=== PATIENT | female | born 1945 | race Caucasian/White ===

== ENCOUNTER 2019-05-01 10:08 | Day surgery (SDC) | payer MEDICARE, BC ==
[~2019-05-01] VITALS: Ht 170.2 cm; Wt 119.5 kg
[~2019-05-01 10:08] MED LIST: ACET25TA12 PO; ADV100INH INH; ASPI81TA85 PO; COLC1TAB13 PO; COMB0.2S OP; COMB0.2S OS; FELO2.5T PO; LOSA25TA14 PO; NS 1,000 ML IV ONE; POTA10808 PO; PRAV40TA2 PO; PRED1TABL PO; TRAV04OPD OP; VENTAER INH
[2019-05-01] MEDS ORDERED: LIDOCAINE 2% INJ 100 MG/5 ML SDV (FOR ANES.) As Ordered ONE (11:09)
[2019-05-01] MEDS ORDERED: PROPOFOL 200 MG/20 ML VIAL As Ordered ONE (11:12)
--- NOTE | 2019-05-01 12:50 | ROOR ---
" Patient Name: Vidya Thomas Procedure Date: 05/01/2019 12:14 PM Date of : 1945 Age: 74 Room: [facility] Gender: Female Note Status: Finalized Procedure: Total Colonoscopy to Cecum + Cold/Hot Snare Polypectomy + Hemoclips Indications: High risk colon cancer surveillance: Personal history of colonic polyps Providers: Harpal Hernandez MD Referring MD: Flores Ferrari MD Requesting Provider: Medicines: Monitored Anesthesia Care Complications: No immediate complications. Procedure: Pre-Anesthesia Assessment: - The heart rate, respiratory rate, oxygen saturations, blood pressure, adequacy of pulmonary ventilation, and response to care were monitored throughout the procedure. The Colonoscope was introduced through the anus and advanced to the cecum, identified by appendiceal orifice and ileocecal valve. The colonoscopy was performed without difficulty. The patient tolerated the procedure well. The quality of the bowel preparation was excellent. Findings: The perianal and digital rectal examinations were normal. Non-bleeding internal hemorrhoids were found during retroflexion. The hemorrhoids were mild, small and Grade I (internal hemorrhoids that do not prolapse). Multiple small and large-mouthed diverticula were found in the recto-sigmoid colon, sigmoid colon and descending colon. A medium polyp was found at 55 cm proximal to the anus. The polyp was semi-pedunculated. The polyp was removed with a hot snare. Resection was complete, and retrieval was complete. To prevent bleeding after the polypectomy, two hemostatic clips were successfully placed (MR conditional). There was no bleeding at the end of the procedure. Multiple sessile polyps were found in the ascending colon. The polyps were small in size. These polyps were removed with a cold snare. Resection and retrieval were complete. To prevent bleeding after the polypectomy, three hemostatic clips were successfully placed (MR conditional). There was no bleeding at the end of the procedure. The exam was otherwise without abnormality on direct and retroflexion views. Impression: - Non-bleeding internal hemorrhoids. - Diverticulosis in the recto-sigmoid colon, in the sigmoid colon and in the descending colon. - One medium polyp at 55 cm proximal to the anus, removed with a hot snare. Resected and retrieved. Clips (MR conditional) were placed. - Multiple small polyps in the ascending colon, removed with a cold snare. Resected and retrieved. Clips (MR conditional) were placed. - The examination was otherwise normal on direct and retroflexion views. - The exam was otherwise normal to the cecum. Recommendation: - Patient has a contact number available for emergencies. The signs and symptoms of potential delayed complications were discussed with the patient. Return to normal activities tomorrow. Written discharge instructions were provided to the patient. - High fiber diet. - Discharge patient to home. - Continue present medications. - Await pathology results. - Check Portal Online for Path Results.([email or web address]) - Telephone GI clinic for pathology results in 1 week. - Repeat colonoscopy in 3 years for surveillance based on pathology results. - Return to referring physician. - The findings and recommendations were discussed with the patient's family. Harpal Hernandez MD Harpal Hernandez MD 05/01/2019 12:49:17 PM Electronically signed by Harpal Hernandez MD Number of Addenda: 0 Note Initiated On: 05/01/2019 12:14 PM Estimated Blood Loss: Estimated blood loss: none."
[2019-05-01 13:14] VITALS: BP 143/70
== END 2019-05-01 13:17 | disposition home or self-care (01) ==
LOC: M OPP 10:08
PROVIDERS: ATTEND Internal Medicine Gastroenterology
DX: D12.2 Benign neoplasm of ascending colon (principal); K62.1 Rectal polyp; K64.0 First degree hemorrhoids; K57.30 Diverticulosis of large intestine without perforation or abscess without bleeding

== ENCOUNTER → 2020-10-07 | Outpatient (CLI) | payer MEDICARE, BC ==
[~2020-10-07] MED LIST changes: +ASPI81CH16 PO; -ASPI81TA85 PO; +ASPI81TA86 PO; +COLC0.6T47 PO; -COLC1TAB13 PO; -FELO2.5T PO; +FURO80TA2 PO; +GABA-1171 PO; +LOSA100T5 PO; -NS 1,000 ML IV ONE; +[UNRECOGNIZED DRUG - CODE] PO
== END ==
LOC: M LABSMTC 09:30
PROVIDERS: ATTEND Anesthesiology
DX: Z01.812 Encounter for preprocedural laboratory examination (principal); Z20.828 Contact with and (suspected) exposure to other viral communicable diseases

== ENCOUNTER 2020-10-12 11:57 | Day surgery (SDC) | payer MEDICARE, BC ==
[~2020-10-12] VITALS: Ht 170.2 cm; Wt 114.3 kg
[~2020-10-12 11:57] MED LIST changes: +NS 1,000 ML IV ONE
[2020-10-12] MEDS ORDERED: propofoL 200 MG/20 ML VIAL As Ordered ONE (13:36)
[2020-10-12] MEDS ORDERED: LIDOCAINE 2% 100MG/5ML SDV (FOR ANES.) As Ordered ONE (13:36)
--- NOTE | 2020-10-12 14:33 | ROOR ---
Patient Name: Vidya Thomas Procedure Date: 10/12/2020 2:14 PM Date of : 1945 Age: 75 Room: [facility] Gender: Female Note Status: Finalized Procedure: Upper Endoscopy + Biopsies Indications: Unexplained iron deficiency anemia Providers: Harpal Hernandez MD Referring MD: Grecia Brown NP Requesting Provider: Medicines: Monitored Anesthesia Care Complications: No immediate complications. Procedure: Pre-Anesthesia Assessment: - The heart rate, respiratory rate, oxygen saturations, blood pressure, adequacy of pulmonary ventilation, and response to care were monitored throughout the procedure. The Endoscope was introduced through the mouth, and advanced to the second part of duodenum. The upper GI endoscopy was accomplished without difficulty. The patient tolerated the procedure well. Findings: The Z-line was irregular and was found 35 cm from the incisors. Multiple biopsies were obtained with cold forceps for evaluation to rule out Aviles's Esophagus randomly at the gastroesophageal junction. A medium-sized hiatal hernia was present. Localized moderate inflammation characterized by congestion (edema), erosions, erythema, granularity and linear erosions was found in the gastric antrum. Biopsies were taken with a cold forceps for Helicobacter pylori testing. The exam of the duodenum was otherwise normal. Impression: - Z-line irregular, 35 cm from the incisors. - Medium-sized hiatal hernia. - Mucosal changes suspicious for gastritis. Biopsied. - Multiple biopsies were obtained at the gastroesophageal junction. - The examination was otherwise normal. Recommendation: - Patient has a contact number available for emergencies. The signs and symptoms of potential delayed complications were discussed with the patient. Return to normal activities tomorrow. Written discharge instructions were provided to the patient. - High fiber diet. - Discharge patient to home. - Follow an antireflux regimen. - Continue present medications. - Await pathology results. - Telephone GI clinic for pathology results in 1 week. - Return to referring physician. - The findings and recommendations were discussed with the patient. - Use Prilosec (omeprazole) 40 mg PO BID. Procedure Code(s): --- Professional --- 11404, Esophagogastroduodenoscopy, flexible, transoral; with biopsy, single or multiple Diagnosis Code(s): --- Professional --- K22.8, Other specified diseases of esophagus K44.9, Diaphragmatic hernia without obstruction or gangrene K31.89, Other diseases of stomach and duodenum D50.9, Iron deficiency anemia, unspecified CPT copyright 2019 [employer]. All rights reserved. The codes documented in this report are preliminary and upon filter washer review may be revised to meet current compliance requirements. Harpal Hernandez MD Harpal Hernandez MD 10/12/2020 2:33:31 PM Electronically signed by Harpal Hernandez MD Number of Addenda: 0 Note Initiated On: 10/12/2020 2:14 PM Estimated Blood Loss: Estimated blood loss: none.
--- NOTE | 2020-10-12 14:57 | ROOR ---
Patient Name: Vidya Thomas Procedure Date: 10/12/2020 2:14 PM Date of : 1945 Age: 75 Room: [facility] Gender: Female Note Status: Finalized Procedure: Total Colonoscopy to Cecum + Cold Snare Polypectomy + Hemoclips Indications: High risk colon cancer surveillance: Personal history of colonic polyps, Incidental - Unexplained iron deficiency anemia Providers: Harpal Hernandez MD Referring MD: Grecia Brown NP Requesting Provider: Medicines: Monitored Anesthesia Care Complications: No immediate complications. Procedure: Pre-Anesthesia Assessment: - The heart rate, respiratory rate, oxygen saturations, blood pressure, adequacy of pulmonary ventilation, and response to care were monitored throughout the procedure. The Colonoscope was introduced through the anus and advanced to the cecum, identified by appendiceal orifice and ileocecal valve. The colonoscopy was performed without difficulty. The patient tolerated the procedure well. The quality of the bowel preparation was excellent. Findings: The perianal and digital rectal examinations were normal. Non-bleeding internal hemorrhoids were found during retroflexion. The hemorrhoids were small and Grade I (internal hemorrhoids that do not prolapse). Scattered small-mouthed diverticula were found in the recto-sigmoid colon, sigmoid colon and descending colon. A small polyp was found at 20 cm proximal to the anus. The polyp was sessile. The polyp was removed with a cold snare. Resection and retrieval were complete. A small polyp was found in the hepatic flexure. The polyp was sessile. The polyp was removed with a cold snare. Resection and retrieval were complete. To prevent bleeding after the polypectomy, one hemostatic clip was successfully placed (MR conditional). There was no bleeding at the end of the procedure. The exam was otherwise without abnormality on direct and retroflexion views. Impression: - Non-bleeding internal hemorrhoids. - Diverticulosis in the recto-sigmoid colon, in the sigmoid colon and in the descending colon. - One small polyp at 20 cm proximal to the anus, removed with a cold snare. Resected and retrieved. - One small polyp at the hepatic flexure, removed with a cold snare. Resected and retrieved. Clip (MR conditional) was placed. - The examination was otherwise normal on direct and retroflexion views. - The exam was otherwise normal to the cecum. Recommendation: - Patient has a contact number available for emergencies. The signs and symptoms of potential delayed complications were discussed with the patient. Return to normal activities tomorrow. Written discharge instructions were provided to the patient. - High fiber diet. - Discharge patient to home. - Continue present medications. - Await pathology results. - Telephone GI clinic for pathology results in 1 week. - Repeat colonoscopy is not recommended due to current age (66 years or older) for screening purposes. - Return to GI office in 6 weeks. - The findings and recommendations were discussed with the patient. Procedure Code(s): --- Professional --- 23276, Colonoscopy, flexible; with removal of tumor(s), polyp(s), or other lesion(s) by snare technique Diagnosis Code(s): --- Professional --- Z86.010, Personal history of colonic polyps K64.0, First degree hemorrhoids K63.5, Polyp of colon K57.30, Diverticulosis of large intestine without perforation or abscess without bleeding CPT copyright 2019 [employer]. All rights reserved. The codes documented in this report are preliminary and upon wiping rag washer review may be revised to meet current compliance requirements. Harpal Hernandez MD Harpal Hernandez MD 10/12/2020 2:56:34 PM Electronically signed by Harpal Hernandez MD Number of Addenda: 0 Note Initiated On: 10/12/2020 2:14 PM Estimated Blood Loss: Estimated blood loss: none.
[2020-10-12 15:12] VITALS: BP 137/58
== END 2020-10-12 15:27 | disposition home or self-care (01) ==
LOC: M OPP 11:57
PROVIDERS: ATTEND Internal Medicine Gastroenterology
DX: Z86.010 Personal history of colon polyps (principal); Z09 Encounter for follow-up examination after completed treatment for conditions other than malignant neoplasm; K63.5 Polyp of colon; K64.0 First degree hemorrhoids; K57.30 Diverticulosis of large intestine without perforation or abscess without bleeding; K22.8 Other specified diseases of esophagus; K44.9 Diaphragmatic hernia without obstruction or gangrene; K31.89 Other diseases of stomach and duodenum; D50.9 Iron deficiency anemia, unspecified; J44.9 Chronic obstructive pulmonary disease, unspecified; Z79.82 Long term (current) use of aspirin; Z79.899 Other long term (current) drug therapy; Z88.0 Allergy status to penicillin; Z88.1 Allergy status to other antibiotic agents

== ENCOUNTER → 2020-12-08 | Outpatient (REF) | payer MEDICARE, BC ==
[~2020-12-08] MED LIST changes: -NS 1,000 ML IV ONE; +PREV1CAP PO
== END ==
LOC: M LAB REF 16:57
PROVIDERS: ATTEND Internal Medicine Nephrology
DX: N18.32 Chronic kidney disease, stage 3b (principal)

== ENCOUNTER → 2020-12-23 | Outpatient (REF) | payer MEDICARE, BC | LOC: M LAB REF 16:55 | PROVIDERS: ATTEND Internal Medicine Nephrology | DX: N18.32 Chronic kidney disease, stage 3b (principal) ==

== ENCOUNTER → 2021-01-13 | Outpatient (CLI) | payer MEDICARE, BC ==
--- NOTE | 2021-01-13 14:35 | REP ---
INDICATION: URINARY CALC, HYPERCALCEMIA, HYPERPARATHYROIDISM. COMPARISON: None. TECHNIQUE/RADIOTRACER AND DOSE: Following the intravenous administration of 25.2 mCi technetium 99 M sestamibi, 15 minutes and 3.5 hour delayed images of the neck are performed in various projections, with delayed SPECT images also performed in the axial, coronal and sagittal planes. FINDINGS: Initial 15 minutes images show symmetrical salivary gland and thyroid uptake bilaterally. On the delayed images there is no persistent focus of increased uptake in the neck that would suggest the presence of a parathyroid adenoma. IMPRESSION: No compelling scintigraphic evidence of a parathyroid adenoma. <Electronically signed by Mundo Balderas > 01/13/21 [id number]
== END ==
LOC: M RAD 09:28
PROVIDERS: ATTEND Internal Medicine Nephrology
DX: E21.0 Primary hyperparathyroidism (principal); E83.52 Hypercalcemia; Z87.442 Personal history of urinary calculi
CPT/HCPCS: 78070; 78803; A9500

== ENCOUNTER → 2021-02-03 | Outpatient (REF) | payer MEDICARE, BC ==
[2021-02-03 18:23] LABS: PERCENT SATURATION 19.8 % (13.2-45.0)
== END ==
LOC: M LAB REF 16:42
PROVIDERS: ATTEND Internal Medicine Nephrology
DX: N18.32 Chronic kidney disease, stage 3b (principal); D63.1 Anemia in chronic kidney disease

== ENCOUNTER → 2021-05-04 | Outpatient (CLI) | payer MEDICARE, BC ==
[~2021-05-04] MED LIST changes: +ADVA230A INH; +BUME2TAB3 PO; +CALC1CAP31 PO; +CINA30TA5 PO; +COMB0.2S OU; +DICL1GEL3 TOP; +FEBU40TA2 PO; +FEBUXOSTAT PO; +FERR325T3 PO; +HYDR-4467 PO; +LIDOCAINE 1% MDV 20ML VIAL As Ordered ONE; +LOSA25TA13 PO; -LOSA25TA14 PO; +MAGN1TAB26 PO; +MAGN500T2 PO; +OMEP40CA5 PO; +SODIUM BICARBONATE 8.4% INJ 50MEQ 50 ML VIAL As Ordered ONE; +SPIR-10 PO; +TORS20TA2 PO; -TRAV04OPD OP; +TRAV04OPD OU
[2021-05-04 08:44] LABS: BASO # 0.1 10^3/uL (0.0-0.2); BASO % 0.9 % (0.0-1.0); EOS # 0.2 10^3/uL (0.0-0.5); EOS % 3.9 % (0.0-3.0); LYMPH # 1.1 10^3/uL (1.5-5.0); LYMPH % 19.6 % (24.0-44.0); MEAN CORPUSCULAR HEMOGLOBIN 30.1 pg (27.0-33.0); MEAN CORPUSCULAR HGB CONC 30.8 g/dl (32.0-36.5); MEAN CORPUSCULAR VOLUME 97.7 fl (80.0-96.0); MONO % 18.4 % (2.0-8.0); NEUTROPHILS # 3.2 10^3/uL (1.5-8.5); PLATELET COUNT, AUTOMATED 150 10^3/uL (150-450); RED BLOOD COUNT 2.66 10^6/uL (4.00-5.40); WHITE BLOOD COUNT 5.6 10^3/uL (4.0-10.0)
[2021-05-04 10:38] VITALS: BP 115/55
== END ==
LOC: M IRPRO 07:59
PROVIDERS: ATTEND Internal Medicine Hematology & Oncology
DX: D64.9 Anemia, unspecified (principal)

== ENCOUNTER 2021-05-24 11:37 | Outpatient (CLI) | payer MEDICARE, BC ==
[2021-05-24] VITALS (7 sets, daily range): BP systolic 127–197; BP diastolic 58–79
[~2021-05-24] VITALS: Ht 170.2 cm; Wt 118.0 kg
[~2021-05-24 11:37] MED LIST changes: +ACETAMINOPHEN TAB 650MG DOSE (2X325MG) PO SCH; -BUME2TAB3 PO; -CALC1CAP31 PO; -COMB0.2S OU; -DICL1GEL3 TOP; -FERR325T3 PO; -HYDR-4467 PO; -LIDOCAINE 1% MDV 20ML VIAL As Ordered ONE; -LOSA25TA13 PO; +LOSA25TA14 PO; -MAGN1TAB26 PO; +OMEP-221 PO; -OMEP40CA5 PO; -SODIUM BICARBONATE 8.4% INJ 50MEQ 50 ML VIAL As Ordered ONE; -SPIR-10 PO; +TRAV04OPD OP; -TRAV04OPD OU
[2021-05-24] MEDS ORDERED: diphenhydrAMINE 50MG CAP PO ONE (12:25)
[2021-05-24] MEDS ORDERED: FUROSEMIDE 20MG/2ML VIAL (J1940) IV ONE (16:00)
== END 2021-05-24 17:20 | disposition home or self-care (01) ==
LOC: M INFU 11:37
PROVIDERS: ATTEND Internal Medicine
DX: D50.9 Iron deficiency anemia, unspecified (principal); Z88.0 Allergy status to penicillin; Z88.1 Allergy status to other antibiotic agents; Z91.09 Other allergy status, other than to drugs and biological substances
CPT/HCPCS: 36430; 86850; 86900; 86901; 86920; J1940; P9016

== ENCOUNTER → 2021-07-06 | Outpatient (REF) | payer MEDICARE, BC ==
[~2021-07-06] MED LIST changes: -ACETAMINOPHEN TAB 650MG DOSE (2X325MG) PO SCH
== END ==
LOC: M LAB REF 13:01
PROVIDERS: ATTEND Internal Medicine Nephrology
DX: E83.42 Hypomagnesemia (principal)

== ENCOUNTER → 2021-07-26 | Outpatient (CLI) | payer MEDICARE, BC | LOC: M LAB 09:06 | PROVIDERS: ATTEND Internal Medicine Nephrology | DX: D50.9 Iron deficiency anemia, unspecified (principal) ==

== ENCOUNTER 2021-07-27 11:57 | Outpatient (CLI) | payer MEDICARE, BC ==
[~2021-07-27] VITALS: Ht 170.2 cm; Wt 113.6 kg
[2021-07-27 12:52] VITALS: BP 157/69
[2021-07-27 13:10] VITALS: BP 133/61
[2021-07-27 14:22] VITALS: BP 146/67
== END 2021-07-27 14:25 | disposition home or self-care (01) ==
LOC: M INFU 11:57
PROVIDERS: ATTEND Internal Medicine Nephrology
DX: D50.9 Iron deficiency anemia, unspecified (principal); Z88.0 Allergy status to penicillin; Z88.1 Allergy status to other antibiotic agents; Z88.2 Allergy status to sulfonamides; Z91.048 Other nonmedicinal substance allergy status
CPT/HCPCS: 36430; P9016

== ENCOUNTER → 2021-08-17 | Outpatient (CLI) | payer MEDICARE, BC ==
[2021-08-17 18:07] LABS: BILIRUBIN,TOTAL 0.9 MG/DL (0.2-1.0); CALCIUM LEVEL 8.8 MG/DL (8.8-10.2); CREATININE FOR GFR 1.51 MG/DL (0.55-1.30); GLOMERULAR FILTRATION RATE 35.9 (>39); POTASSIUM SERUM 3.7 MEQ/L (3.5-5.1); TOTAL PROTEIN 6.7 GM/DL (6.4-8.2)
[2021-08-21 01:06] LABS: ERYTHROPOIETIN 50.6 mIU/mL (2.6-18.5); SOLUBLE TRANSFERRIN RECEPTOR 30.9 nmol/L (12.2-27.3)
== END ==
LOC: M LAB 16:15
PROVIDERS: ATTEND Specialist
DX: D50.9 Iron deficiency anemia, unspecified (principal)

== ENCOUNTER → 2021-08-22 | Outpatient (REF) | payer MEDICARE, BC | LOC: M LAB REF 17:10 | PROVIDERS: ATTEND Internal Medicine Nephrology | DX: E83.42 Hypomagnesemia (principal) ==

== ENCOUNTER 2021-09-14 11:31 | Inpatient (IN) | payer MEDICARE, BC ==
[2021-09-14] VITALS (11 sets, daily range): BP systolic 133–165; BP diastolic 63–73
[~2021-09-14] VITALS: Ht 170.2 cm; Wt 117.2 kg
[~2021-09-14 11:31] MED LIST changes: -COMB0.2S OU; -DICL1GEL3 TOP; -MAGN1TAB26 PO; -SPIR-10 PO
[2021-09-14] MEDS ORDERED: COMB0.2S OU (11:56)
[2021-09-14] MEDS ORDERED: SPIR-10 PO (11:56)
[2021-09-14 12:29] LABS: HEMATOCRIT 23.8 % (36.0-47.0); MEAN CORPUSCULAR HEMOGLOBIN 29.2 pg (27.0-33.0); MEAN CORPUSCULAR VOLUME 100.8 fl (80.0-96.0); PLATELET COUNT, AUTOMATED 103 10^3/uL (150-450); RED BLOOD COUNT 2.36 10^6/uL (4.00-5.40); WHITE BLOOD COUNT 5.2 10^3/uL (4.0-10.0)
[2021-09-14 12:38] LABS: HEMOGLOBIN 6.9 g/dl (12.0-15.5)
[2021-09-14 13:01] LABS: BILIRUBIN,TOTAL 0.6 MG/DL (0.2-1.0); CALCIUM LEVEL 8.6 MG/DL (8.8-10.2); CREATININE FOR GFR 2.96 MG/DL (0.55-1.30); GLOMERULAR FILTRATION RATE 16.5 (>39); POTASSIUM SERUM 4.7 MEQ/L (3.5-5.1); TOTAL PROTEIN 6.5 GM/DL (6.4-8.2)
[2021-09-14 13:03] LABS: MAGNESIUM LEVEL 2.2 MG/DL (1.8-2.4); URIC ACID 5.1 MG/DL (2.6-6.0)
--- NOTE | 2021-09-14 13:03 | REP ---
INDICATION: ERWIN. COMPARISON: None. FINDINGS: The patient is status post right nephrectomy. Multiple ultrasonographic images of the left kidney show the left kidney to measure 12.1 x 5.6 x 5.7 cm. The renal cortical echotexture is unremarkable. There are no masses. There is good corticomedullary differentiation. There is no hydronephrosis. There are no perinephric fluid collections. IMPRESSION: Unremarkable renal ultrasonography. <Electronically signed by Steve Che > 09/14/21 [id number]
--- NOTE | 2021-09-14 13:38 | HPEPDOC ---
[facility] Medical History & Physical Date of Admission Sep 14, 2021 Date of Service: Sep 14, 2021 History and Physical CHIEF COMPLAINT: weakness HISTORY OF PRESENT ILLNESS: 76-year-old female presents with several day history of worsening shortness of breath dizziness and weakness. She was seen today and by her remedial project manager with recommendations to present to the emergency room. In the ER she is found to be anemic. She has a longstanding history of chronic anemia with an extensive work-up including recent bone marrow biopsy. 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 REVIEW OF SYSTEMS: Negative except as per HPI. HOME MEDICATIONS: Please see below. PHYSICAL EXAMINATION: Vital Signs: reviewed General: NAD, lying comfortably in bed HEENT: NC/AT, EOMI Neck: supple, no masses Chest: lungs CTA B/L Heart: +S1S2, RRR Abd: soft, NT, ND, +BS, obese Ext: peripheral edema Skin: no rashes MSK: full ROM at large joints Neuro: no gross focal deficits Psych: AAOx3 LABORATORY DATA: See below. MICROBIOLOGY: Please see below. A/P: 76-year-old female with extensive medical history including chronic anemia presents for symptomatic acute on chronic anemia with acute kidney injury in the setting of chronic kidney disease. #acute/chronic anemia - multifactorial - extensive workup with he health information technician - Dr. Adrian, recently transfer of care to Dr. Vargas - transfuse PRBC - she has had recent colonoscopy, and recent bone marrow biopsy - no acute pathology noted - heme c/s - as per chart review, last seen 08/17 by rea, with plans for Aranesp bi weekly, target Hg=10 #ERWIN/CKD - s./p nephrectomy - IV fluids - nephrology c/s #CAD #COPD #Polymyalgia rheumatica - continue prednisone #Gout #Hypertension #Dyslipidemia #Glaucoma Vital Signs Vital Signs Date Time Temp Pulse Resp B/P (MAP) Pulse Ox O2 Delivery O2 Flow Rate FiO2 09/14/21 11:57 96.0 51 16 125/58 (80) 96 Room Air Laboratory Data Labs 24H Laboratory Tests 2 09/14/21 12:12: Nucleated Red Blood Cells % (auto) 0.0, Anion Gap 5L, Glomerular Filtration Rate 16.5L, Uric Acid 5.1, Calcium Level 8.6L, Whole Blood Ionized Calcium 4.4L, Magnesium Level 2.2, Total Bilirubin 0.6, Aspartate Amino Transf (AST/SGOT) 32, Alanine Aminotransferase (ALT/SGPT) 21, Alkaline Phosphatase 115, Total Creatine Kinase 59, Total Protein 6.5, Albumin 3.0L, Albumin/Globulin Ratio 0.9L 09/14/21 12:19: CBC/BMP Laboratory Tests 09/14/21 12:12 Home Medications Scheduled Brimonidine Tartrate/Timolol (Combigan 0.2%-0.5% Eye Drops) 5 Ml Drops, 1 DROP OP BID Cinacalcet HCl (Cinacalcet HCl) 30 Mg Tablet, 1 TAB PO QWEEK Febuxostat (Febuxostat) 40 Mg Tablet, 40 MG PO DAILY Fluticasone Propion/Salmeterol (Advair Hfa 230-21 Mcg Inhaler) 12 Gm Hfa.aer.ad, 2 PUFF INH BID Gabapentin (Gabapentin) 100 Mg Capsule, 300 MG PO QPM Gabapentin (Gabapentin) 100 Mg Capsule, 100 MG PO QAM Magnesium Oxide (Magnesium Oxide) 500 Mg Tablet, 400 MG PO DAILY Omeprazole (Omeprazole) 40 Mg Capsule.dr, 1 TAB PO DAILY Potassium Citrate (Potassium Citrate 10MEQ (Urocit-K)) 10 Meq Tablet.er, 1 TAB PO DAILY Pravastatin Sodium (Pravastatin Sodium) 40 Mg Tablet, 40 MG PO DAILY Torsemide (Torsemide) 20 Mg Tablet, 1 TAB PO TID Travoprost (Travatan Z) 0.004% 2.5ML Drops, 1 DROP OP QPM Scheduled PRN Albuterol Sulfate (Ventolin Hfa) 18 Gm Hfa.aer.ad, 2 PUFF INH Q4-6HP PRN for wheezing Miscellaneous Medications Spironolactone (Spironolactone) 25 Mg Tablet Allergies Coded Allergies: levofloxacin (Verified Allergy, Severe, Throat swelling, 04/24/19) Penicillins (Verified Allergy, Intermediate, rash, 04/24/19) allopurinol (Verified Allergy, Intermediate, rash, 10/07/20) cephalexin (Verified Allergy, Intermediate, hives, 04/24/19) sulfamethoxazole (Verified Allergy, Intermediate, rash, 04/24/19) trimethoprim (Verified Allergy, Intermediate, rash, 04/24/19) TAPE (Verified Allergy, Mild, skin tears and bruising, 10/07/20) A-FIB/CHADSVASC A-FIB History Current/History of A-Fib/PAF?: No EDENILSON HEARN MD Sep 14, 2021 13:38
[2021-09-14 13:41] LABS: RSV AMPLIFICATION NEGATIVE (NEGATIVE)
[2021-09-14] MEDS ORDERED: DICL1GEL3 TOP (13:47)
[2021-09-14] MEDS ORDERED: MAGN1TAB26 PO (13:47)
[2021-09-14] MEDS ORDERED: HOME MED LIST COMPLETE! XX SCH (13:50)
[2021-09-14 14:33] LABS: CREATININE,RANDOM URINE 32.3 MG/DL; POTASSIUM RANDOM URINE 32.7 MEQ/L; TOTAL PROTEIN,RANDOM URINE 9.8 MG/DL (0.0-12.0)
[2021-09-14] MEDS ORDERED: ALBUTEROL 90 MCG/ACT 8GM HFA INHALER INH PRN (14:50)
[2021-09-14] MEDS: TORSEMIDE 20 MG TAB PO SCH (18:32)
[2021-09-14] MEDS: NS 1,000 ML IV SCH (18:59)
[2021-09-14] MEDS: LATANOPROST 0.005% OPHTH SOLN 2.5 ML OU SCH (20:02)
[2021-09-14] MEDS: PRAVASTATIN 20 MG TAB PO SCH (20:06)
[2021-09-14] MEDS: GABAPENTIN 300 MG CAP PO SCH (20:06)
[2021-09-14] MEDS: SPIRONOLACTONE 25 MG TAB PO SCH (20:07)
[2021-09-14] MEDS: ADVAIR HFA 230/21MCG INHALER INH SCH (20:37)
[2021-09-14] MEDS ORDERED: oxyCODONE 5MG TAB PO PRN (22:25)
[2021-09-14] MEDS: ACETAMINOPHEN 500 MG TAB PO PRN (22:36)
[2021-09-15 06:00] VITALS: BP 126/54
[2021-09-15 07:07] LABS: HEMATOCRIT 27.6 % (36.0-47.0); HEMOGLOBIN 8.4 g/dl (12.0-15.5); MEAN CORPUSCULAR HEMOGLOBIN 29.2 pg (27.0-33.0); MEAN CORPUSCULAR HGB CONC 30.4 g/dl (32.0-36.5); MEAN CORPUSCULAR VOLUME 95.8 fl (80.0-96.0); PLATELET COUNT, AUTOMATED 91 10^3/uL (150-450); RED BLOOD COUNT 2.88 10^6/uL (4.00-5.40); WHITE BLOOD COUNT 4.4 10^3/uL (4.0-10.0)
[2021-09-15 07:25] LABS: ALBUMIN 2.9 GM/DL (3.2-5.2); BILIRUBIN,TOTAL 0.8 MG/DL (0.2-1.0); CALCIUM LEVEL 8.8 MG/DL (8.8-10.2); CREATININE FOR GFR 2.55 MG/DL (0.55-1.30); GLOMERULAR FILTRATION RATE 19.6 (>39); POTASSIUM SERUM 4.8 MEQ/L (3.5-5.1); TOTAL PROTEIN 6.1 GM/DL (6.4-8.2)
[2021-09-15] MEDS: ADVAIR HFA 230/21MCG INHALER INH SCH ×2 (07:44→20:04)
--- NOTE | 2021-09-15 07:48 | ECGEPIP ---
[facility] - ED Test Date: 2021-09-14 Pat Name: ALEXANDRA MORIN Department: Room: - Gender: Female Graduate Assistant: PAIGE : 1945 Requested By: Angie Lanza Order Number: [id number] Reading MD: Sumanth Francisco Measurements Intervals [place] Rate: 52 P: 45 [place]: 224 QRS: -26 QRSD: 176 T: 14 QT: 528 QTc: 491 Interpretive Statements Sinus bradycardia with 1st degree AV block Right bundle branch block NO PRIORS FOR COMPARISON Electronically Signed on 09-15-2021 7:48:01 EST by Sumanth Francisco
[2021-09-15] MEDS: NS 1,000 ML IV SCH (08:47)
[2021-09-15] MEDS: FEBUXOSTAT 40 MG TABLET (ULORIC) PO SCH (08:48)
[2021-09-15] MEDS: TORSEMIDE 20 MG TAB PO SCH ×2 (08:48→17:54)
[2021-09-15] MEDS: MAGNESIUM OXIDE 400MG TAB (MAG-OX) PO SCH (08:48)
[2021-09-15] MEDS: GABAPENTIN 100 MG CAP PO SCH (08:48)
[2021-09-15] MEDS: OMEPRAZOLE 20 MG CAP PO SCH (08:48)
[2021-09-15 11:11] LABS: PERCENT SATURATION 91.6 % (13.2-45.0)
--- NOTE | 2021-09-15 11:14 | IPNPDOC ---
Text Note Date of Service The patient was seen on 09/15/21. NOTE Subjective: Patient seen and examined at bedside. No acute overnight events reported. Patient voices no new medical complaints this morning. Objective: Vital Signs: reviewed General: NAD, sitting comfortably in chair HEENT: NC/AT, EOMI Neck: supple, no masses Chest: lungs CTA B/L Heart: +S1S2, RRR Abd: soft, NT, ND, +BS, obese Ext: peripheral edema Skin: no rashes MSK: full ROM at large joints Neuro: no gross focal deficits Psych: AAOx3 A/P: 76-year-old female with extensive medical history including chronic anemia presents for symptomatic acute on chronic anemia with acute kidney injury in the setting of chronic kidney disease. #acute/chronic anemia -Improved status post transfusion of PRBC - multifactorial - extensive workup with he human resources benefits specialist - Dr. Adrian, recently transfer of care to Dr. Vargas - she has had recent colonoscopy, and recent bone marrow biopsy - no acute pathology noted - heme c/s - as per chart review, last seen 08/17 by rea, with plans for Aranesp bi weekly, target Hg=10 #ERWIN/CKD - s./p nephrectomy - IV fluids - nephrology c/s appreciated #CAD #COPD #Polymyalgia rheumatica - continue prednisone #Gout #Hypertension #Dyslipidemia #Glaucoma VS,Fishbone, I+O VS, Fishbone, I+O Laboratory Tests 09/14/21 12:12 09/15/21 06:24 Vital Signs Date Time Temp Pulse Resp B/P (MAP) Pulse Ox O2 Delivery O2 Flow Rate FiO2 09/15/21 06:00 97.7 64 17 126/54 (78) 95 Room Air I&O- Last 24 Hours up to 6 AM 09/15/21 06:00 Intake Total 1700 ml Balance 1700 ml EDENILSON HEARN MD Sep 15, 2021 11:14
[2021-09-15 14:00] VITALS: BP 133/50
[2021-09-15] MEDS: TIMOLOL MALEATE 0.5% OPHTH SOLN 5 ML OU SCH ×2 (14:20→21:00)
[2021-09-15] MEDS: BRIMONIDINE 0.15% OPHTH SOLN 5 ML OU SCH ×2 (14:20→21:00)
--- NOTE | 2021-09-15 20:05 | CR ---
NEPHROLOGY CONSULTATION DATE: 09/15/2021 REQUESTING PHYSICIAN: Gaudencio Ureña M.D. CONSULTING PHYSICIAN: Emilia Kessler M.D. REASON FOR CONSULTATION: Acute kidney injury superimposed on chronic kidney disease in this lady with a solitary functioning kidney. She also has symptomatic anemia. HISTORY OF PRESENT ILLNESS: Mrs. Thomas is a 76-year-old extremely pleasant female with a known history of right nephrectomy due to staghorn stones in 1974. She has baseline chronic kidney disease with a solitary functioning kidney. She also has anemia for which she has done an extensive workup by Hematology. She has received IV iron and has been on a schedule for Procrit. She was seen in the office yesterday and found to have acute kidney injury superimposed on chronic kidney disease and in addition, she also had worsening anemia due to which she was admitted. Nephrology consultation was requested and the patient is seen this morning. PAST MEDICAL AND SSURGICAL HISTORY: The patient's past medical and surgical history is significant for: 1. Severe anemia with iron deficiency and chronic kidney disease. 2. Chronic kidney disease. 3. Chronic obstructive pulmonary disease. 4. Stage 3 chronic kidney disease - status post right nephrectomy. 5. Polymyalgia rheumatica. 6. Gout. 7. Hypertension. 8. Dyslipidemia. 9. Glaucoma. PAST SURGICAL HISTORY: The patient's past surgical history is significant for: 1. Bilateral cataracts with surgical removal and lens implants. 2. Total right hip replacement. 3. Staghorn stone removal. 4. Right nephrectomy. 5. Pilonidal cyst removal. 6. Hysterectomy. 7. Bilateral salpingo-oophorectomy. 8. Tonsillectomy. 9. Tubal ligation prior to that. FAMILY HISTORY: The patient's family history is significant for lung cancer in father and dementia in the mother and they are both . PERSONAL AND SOCIAL HISTORY: The patient quit smoking about 10 years ago and has no history of alcohol or drug use. ALLERGIES: The patient has multiple allergies includin. PENICILLIN. 2. ALLOPURINOL. 3. CEPHALEXIN. 4. LEVOFLOXACIN. 5. SULFA. 6. TAPE. MEDICATIONS: Home medications include: 1. Sincalide 30 mg once a week. 2. Uloric 40 mg daily. 3. Gabapentin 300 mg in the p.m. and 100 mg in the a.m. 4. Magnesium Oxide 400 mg daily. 5. Omeprazole 40 mg daily. 6. Potassium Citrate 10 mg daily. 7. Pravastatin 40 mg daily. 8. Torsemide 40 mg twice daily. 9. Travatan-Z eye drops. 10. Brimonidine eye drops twice daily. REVIEW OF SYSTEMS: Constitutional: The patient any fevers or chills. Ears, Nose and Throat: Unremarkable. Cardiovascular System: Negative for chest pain but she does have some dyspnea on exertion and leg edema. Respiratory System: Negative for cough or hemoptysis. GI System: Negative for nausea, vomiting or diarrhea. She denies any black colored stools or rectal bleeding. System: Significant for kidney stones but no symptoms at present. She has a prior right nephrectomy. Musculoskeletal System: Significant for lower extremity edema. She denies any significant arthritis. Psychosocial System: Negative for depression or anxiety. Hematological System: Significant for severe anemia with iron deficiency and chronic kidney disease. Endocrine System: Negative for diabetes or thyroid problems. Skin: Negative for rash or ulcers. PHYSICAL EXAMINATION: GENERAL APPEARANCE: The patient is sitting in the chair at the time of my visit. VITAL SIGNS: Temperature is 97.7 degrees Fahrenheit, heart rate 64 per minute, respiratory rate 16 per minute, blood pressure 126/54 mm of mercury and oxygen saturation is 95% on room air. HEENT: His head is atraumatic. Pupils are equal and reactive and reactive to light and sclerae are anicteric. There is no oral thrush or ulcers. NECK: Supple and JVD seems to be about 6-7 cm above the sternal angle. HEART: Regular. LUNGS: Clear to auscultation. ABDOMEN: Soft and nontender and bowel sounds are normal. EXTREMITIES: Without any cyanosis or clubbing. She is wearing compression stockings but does 2+ edema bilaterally. NEUROLOGICAL: She is awake, alert and oriented x3. LABORATORY STUDIES: WBC count is 5.2, hemoglobin 6.9 and hematocrit 23.8 on admission. She was transfused 2 units of packed RBCs. Today her hemoglobin is 8.4 and hematocrit is 27.6. Sodium 146, potassium 4.8, chloride 112, CO2 26, BUN 59 and creatinine 2.55. Yesterday her BUN was 65 and creatinine 2.96. Iron level is 351 and saturation 91%. She has recently received IV iron. PROBLEMS: 1. Acute kidney injury superimposed on chronic kidney disease - kidney function is slightly improved since yesterday. She has only a solitary left kidney and renal ultrasound was negative for any obstruction. At present we will monitor her renal function without any intervention. Her urine protein was only 9.8 mg per deciliter so she does not have any significant proteinuria. 2. Symptomatic anemia she has significant anemia which has improved following transfusion of 2 units of packed RBCs. She has recently received IV iron with Hematology and is going to have Procrit as an outpatient. I will hold off on any Procrit therapy at this point. 3. Hypernatremia this is most likely related to IV fluids. I am going to stop all IV fluids as she is already volume overloaded. 4. Lower extremity edema she does have significant edema and volume overload. I would stop the IV fluids and continue with Torsemide twice daily. I feel that her edema is likely to improve quickly. 5. Gout she has symptomatic history of gout and history of extensive stone problems. Her uric acid used to be quite high which has now improved to 5.1. She will continue with Uloric 40 mg daily. The patient seems to be doing much better after she was transfused 2 units of packed RBCs. We will monitor her for the next 24 hours and see how she does with her lower extremity edema and renal function. If her kidney function is any better tomorrow, she can probably be discharged. Thank you for involving me in the care of Mrs. Thomas. Nephrology Service will follow her along with you.
[2021-09-15] MEDS: GABAPENTIN 300 MG CAP PO SCH (20:09)
[2021-09-15] MEDS: SPIRONOLACTONE 25 MG TAB PO SCH (20:09)
[2021-09-15] MEDS: PRAVASTATIN 20 MG TAB PO SCH (20:09)
[2021-09-15] MEDS: ACETAMINOPHEN 500 MG TAB PO PRN (20:56)
[2021-09-15] MEDS: LATANOPROST 0.005% OPHTH SOLN 2.5 ML OU SCH (21:00)
[2021-09-15] MEDS: ONDANSETRON 4 MG ORAL DISINTEGRATING TAB PO PRN (21:24)
[2021-09-15 22:00] VITALS: BP 130/52
[2021-09-16 06:00] VITALS: BP 145/63
[2021-09-16] MEDS: ADVAIR HFA 230/21MCG INHALER INH SCH ×2 (07:32→19:49)
[2021-09-16] MEDS ORDERED: DARBEPOETIN 100 MCG/0.5 ML *NON-DIALYSIS* SYRINGE (J0881) SC SCH (09:00)
[2021-09-16] MEDS: FEBUXOSTAT 40 MG TABLET (ULORIC) PO SCH (09:08)
[2021-09-16] MEDS: TIMOLOL MALEATE 0.5% OPHTH SOLN 5 ML OU SCH ×2 (09:08→21:02)
[2021-09-16] MEDS: MAGNESIUM OXIDE 400MG TAB (MAG-OX) PO SCH (09:08)
[2021-09-16] MEDS: GABAPENTIN 100 MG CAP PO SCH (09:08)
[2021-09-16] MEDS: BRIMONIDINE 0.15% OPHTH SOLN 5 ML OU SCH ×2 (09:08→21:00)
[2021-09-16] MEDS: OMEPRAZOLE 20 MG CAP PO SCH (09:08)
[2021-09-16] MEDS: ONDANSETRON 4 MG ORAL DISINTEGRATING TAB PO PRN (09:16)
[2021-09-16 09:24] LABS: BASO % 0.3 % (0.0-1.0); EOS # 0.1 10^3/uL (0.0-0.5); EOS % 2.1 % (0.0-3.0); HEMATOCRIT 28.7 % (36.0-47.0); HEMOGLOBIN 8.6 g/dl (12.0-15.5); LYMPH # 0.8 10^3/uL (1.5-5.0); LYMPH % 12.7 % (24.0-44.0); MEAN CORPUSCULAR VOLUME 96.6 fl (80.0-96.0); MONO # 0.8 10^3/uL (0.0-0.8); MONO % 12.2 % (2.0-8.0); NEUTROPHILS # 4.6 10^3/uL (1.5-8.5); NEUTROPHILS % 72.2 % (36.0-66.0); RED BLOOD COUNT 2.97 10^6/uL (4.00-5.40); WHITE BLOOD COUNT 6.3 10^3/uL (4.0-10.0)
[2021-09-16 09:30] LABS: PLATELET COUNT, AUTOMATED 93 10^3/uL (150-450)
[2021-09-16 09:37] LABS: CALCIUM LEVEL 9.2 MG/DL (8.8-10.2); CREATININE FOR GFR 2.68 MG/DL (0.55-1.30); GLOMERULAR FILTRATION RATE 18.5 (>39); POTASSIUM SERUM 4.8 MEQ/L (3.5-5.1)
[2021-09-16] MEDS: TORSEMIDE 20 MG TAB PO SCH ×2 (10:50→17:27)
--- NOTE | 2021-09-16 11:07 | IPN ---
NEPHROLOGY PROGRESS NOTE DATE: 09/16/2021 SUBJECTIVE: Ms. Thomas is seen and examined this morning at the bedside. She complains of generally feeling weak and tired. She was transfused 2 units of blood on September 14, 2021. Hemoglobin has come up to 8.6 today. She remains in acute kidney injury with creatinine of 2.6 on the latest labs, up from baseline creatinine of 1.5. She has ongoing leg edema, but brain natriuretic peptide (BNP) is only mildly elevated. She complains of shortness of breath with exertion. PHYSICAL EXAMINATION: VITAL SIGNS: Temperature 97.3, pulse 75, respiratory rate 20, blood pressure 145/63, saturating 96% on room air. INTAKE AND OUTPUT: Intake yesterday was not fully recorded. Urine output was recorded as three voids. GENERAL: Patient is seen awake, alert, lying in bed, elderly female, obese, awake, alert, oriented and in no acute distress. HEENT: Skin has less pallor. Extraocular muscles are intact. Tongue is moist. NECK: Jugular veins do not look elevated. HEART SOUNDS: Regular. S1, S2. LUNGS: Clear to auscultation. No crackle or rale. She is comfortable on room air. ABDOMEN: Obese, soft and nontender. EXTREMITIES: Show 2+ pitting edema on the bilateral lower extremities. NEUROLOGIC: She is oriented times three, interactive, conversational. SKIN: Shows improvement in pallor and is otherwise warm and dry. LABORATORY STUDIES: Labs show hemoglobin 8.6, white count 6.3, platelets 93. Sodium 144, potassium 4.8, BUN 60, creatinine 2.68, GFR 18. Transferrin saturation 90%. Brain natriuretic peptide (BNP) 546. Albumin 2.9. Renal ultrasound showed no obstruction of her solitary kidney. INPATIENT MEDICATIONS: Reviewed by myself and no changes noted over the past 24 hours with the exception of one dose of Aranesp ordered for today. PROBLEMS: 1. Acute kidney injury superimposed on chronic kidney disease (CKD) stage IIIB in this patient with a solitary functioning kidney. Baseline creatinine is 1.4. Acute kidney injury is in the setting of severe anemia and also new and worsening leg edema of uncertain etiology. She was transfused 2 units of packed red blood cells, but there is no improvement in her renal function. Ultrasound was negative for any obstruction. I am going to hold off on giving her intravenous (IV) diuretics because her Brain natriuretic peptide (BNP) is only mildly elevated and I want to make sure she does not have a deep venous thrombosis (DVT) that is causing the leg edema. 2. Localized edema. Patient has 2+ pitting edema in the legs, which has been ongoing for the past couple of months and did not respond to increase in diuretics in the outpatient setting. Her BNP is only mildly elevated. Her jugular veins are not elevated. I am getting a chest x-ray to see if there is any sign of pulmonary vascular congestion, et cetera. I am not going to put her on IV diuretics until we have ruled out other etiologies such as DVT. Venous Duplex is ordered. 3. Thrombocytopenia. Platelet counts are noted to be downtrending over the past couple of months. Venous Duplex is pending. 4. Anemia. Patient has had worsening anemia and etiology is unknown. She follows up with hematology as outpatient. She has had a bone marrow aspiration earlier this year. I have ordered a dose of Aranesp today and there is no need for IV iron. We will see if venous Duplex reveals any thrombosis.
--- NOTE | 2021-09-16 11:22 | IPNPDOC ---
Text Note Date of Service The patient was seen on 09/16/21. NOTE Subjective: Patient seen and examined at bedside. No acute overnight events reported. Patient voices no new medical complaints this morning. Anxious to go home. Objective: Vital Signs: reviewed General: NAD, sitting comfortably in chair HEENT: NC/AT, EOMI Neck: supple, no masses Chest: lungs CTA B/L Heart: +S1S2, RRR Abd: soft, NT, ND, +BS, obese Ext: peripheral edema Skin: no rashes MSK: full ROM at large joints Neuro: no gross focal deficits Psych: AAOx3 A/P: 76-year-old female with extensive medical history including chronic anemia presents for symptomatic acute on chronic anemia with acute kidney injury in the setting of chronic kidney disease. #acute/chronic anemia -Improved status post transfusion of PRBC - multifactorial - extensive workup with he negative developer - Dr. Adrian, recently transfer of care to Dr. Vargas - she has had recent colonoscopy, and recent bone marrow biopsy - no acute pathology noted - heme c/s - as per chart review, last seen 08/17 by rea, with plans for Aranesp bi weekly, target Hg=10 #thrombocytopenia - no active bleeding - is following closely with rea as outpatient #ERWIN/CKD - s./p nephrectomy - nephrology c/s appreciated - still not at baseline #CAD #COPD #Polymyalgia rheumatica - continue prednisone #Gout #Hypertension #Dyslipidemia #Glaucoma VS,Fishbone, I+O VS, Fishbone, I+O Laboratory Tests 09/16/21 08:50 Vital Signs Date Time Temp Pulse Resp B/P (MAP) Pulse Ox O2 Delivery O2 Flow Rate FiO2 09/16/21 06:00 97.3 75 20 145/63 (90) 96 Room Air I&O- Last 24 Hours up to 6 AM 09/16/21 06:00 Intake Total 730 ml Balance 730 ml EDENILSON HEARN MD Sep 16, 2021 11:22
--- NOTE | 2021-09-16 11:29 | REP ---
INDICATION: eval for edema / vascular congestion etc. COMPARISON: No comparison study. TECHNIQUE: Two views.. FINDINGS: There is mild cardiomegaly. Cardiothoracic ratio is 51.9%. The thoracic aorta is tortuous. The pleural angles are sharp. Pulmonary vasculature is cephalized. There is no evidence of pulmonary edema or pleural effusion. No focal infiltrate is seen. No acute bony abnormality. IMPRESSION: Cardiomegaly with vascular cephalization. No evidence of pleural effusion or pulmonary edema. <Electronically signed by Chris Cullen > 09/16/21 [id number]
--- NOTE | 2021-09-16 13:44 | REP ---
INDICATION: edema, eval for dvt. COMPARISON: None. TECHNIQUE: Bilateral lower extremity duplex venous scanning is performed from the groin to the ankle level. FINDINGS: The deep veins are anechoic and fully compressible from the groin to the popliteal fossa in the left and right lower extremity. Color flow imaging is homogeneous. Spectral Doppler interrogation demonstrates intact respiratory variation in flow and normal manual augmentation of flow. There is no evidence of deep vein thrombosis in the femoropopliteal veins. Calf veins could not be visualized in this patient due to edema. IMPRESSION: No evidence of DVT in the femoropopliteal veins.. <Electronically signed by Chris Cullen > 09/16/21 1201
[2021-09-16 14:00] VITALS: BP 122/51
[2021-09-16] MEDS: GABAPENTIN 300 MG CAP PO SCH (20:56)
[2021-09-16] MEDS: PRAVASTATIN 20 MG TAB PO SCH (20:57)
[2021-09-16] MEDS: SPIRONOLACTONE 25 MG TAB PO SCH (20:57)
[2021-09-16] MEDS: LATANOPROST 0.005% OPHTH SOLN 2.5 ML OU SCH (21:04)
[2021-09-16 22:00] VITALS: BP 159/63
[2021-09-17] VITALS (8 sets, daily range): BP systolic 122–148; BP diastolic 49–65
[2021-09-17] MEDS: ADVAIR HFA 230/21MCG INHALER INH SCH ×2 (07:30→20:25)
[2021-09-17 08:02] LABS: BASO % 0.5 % (0.0-1.0); EOS # 0.2 10^3/uL (0.0-0.5); EOS % 2.6 % (0.0-3.0); HEMATOCRIT 29.2 % (36.0-47.0); HEMOGLOBIN 8.8 g/dl (12.0-15.5); LYMPH # 1.1 10^3/uL (1.5-5.0); LYMPH % 18.6 % (24.0-44.0); MEAN CORPUSCULAR HEMOGLOBIN 29.4 pg (27.0-33.0); MEAN CORPUSCULAR HGB CONC 30.1 g/dl (32.0-36.5); MEAN CORPUSCULAR VOLUME 97.7 fl (80.0-96.0); MONO # 0.8 10^3/uL (0.0-0.8); MONO % 14.4 % (2.0-8.0); NEUTROPHILS # 3.7 10^3/uL (1.5-8.5); NEUTROPHILS % 63.4 % (36.0-66.0); RED BLOOD COUNT 2.99 10^6/uL (4.00-5.40); WHITE BLOOD COUNT 5.8 10^3/uL (4.0-10.0)
[2021-09-17 08:05] LABS: PLATELET COUNT, AUTOMATED 92 10^3/uL (150-450)
[2021-09-17] MEDS: GABAPENTIN 100 MG CAP PO SCH (08:20)
[2021-09-17] MEDS: OMEPRAZOLE 20 MG CAP PO SCH (08:21)
[2021-09-17] MEDS: FEBUXOSTAT 40 MG TABLET (ULORIC) PO SCH (08:21)
[2021-09-17] MEDS: TIMOLOL MALEATE 0.5% OPHTH SOLN 5 ML OU SCH ×2 (08:21→21:24)
[2021-09-17] MEDS: BRIMONIDINE 0.15% OPHTH SOLN 5 ML OU SCH ×2 (08:21→21:24)
[2021-09-17] MEDS: MAGNESIUM OXIDE 400MG TAB (MAG-OX) PO SCH (08:21)
[2021-09-17 08:22] LABS: CREATININE FOR GFR 2.83 MG/DL (0.55-1.30); GLOMERULAR FILTRATION RATE 17.4 (>39); POTASSIUM SERUM 5.3 MEQ/L (3.5-5.1)
[2021-09-17] MEDS: FUROSEMIDE 100MG/10ML VIAL (J1940) IV SCH ×3 (08:22→21:25)
--- NOTE | 2021-09-17 10:11 | IPNPDOC ---
Text Note Date of Service The patient was seen on 09/17/21. NOTE Subjective: Patient seen and examined at bedside. No acute overnight events reported. Patient voices no new medical complaints this morning. Anxious to go home. Objective: Vital Signs: reviewed General: NAD, sitting comfortably in chair HEENT: NC/AT, EOMI Neck: supple, no masses Chest: lungs CTA B/L Heart: +S1S2, RRR Abd: soft, NT, ND, +BS, obese Ext: peripheral edema Skin: no rashes MSK: full ROM at large joints Neuro: no gross focal deficits Psych: AAOx3 A/P: 76-year-old female with extensive medical history including chronic anemia presents for symptomatic acute on chronic anemia with acute kidney injury in the setting of chronic kidney disease. #acute/chronic anemia -Improved status post transfusion of PRBC - multifactorial - extensive workup with he manager stone - Dr. Adrian, recently transfer of care to Dr. Vargas - she has had recent colonoscopy, and recent bone marrow biopsy - no acute pathology noted - heme c/s - as per chart review, last seen 08/17 by rea, with plans for Aranesp bi weekly, target Hg=10 #thrombocytopenia - no active bleeding - follows closely with rea as outpatient #ERWIN/CKD - s./p nephrectomy - nephrology c/s appreciated - iv lasix today #edema - LE dopplers negative for DVT - echo pending - CXR clear #CAD #COPD #Polymyalgia rheumatica - continue prednisone #Gout - uloric, prednisone #Hypertension #Dyslipidemia - pravachol #Glaucoma Dispo: pending improvement in renal function, echocardiogram VS,Fishbone, I+O VS, Fishbone, I+O Laboratory Tests 09/17/21 07:43 Vital Signs Date Time Temp Pulse Resp B/P (MAP) Pulse Ox O2 Delivery O2 Flow Rate FiO2 09/17/21 06:00 98.1 75 20 131/59 (83) 92 Room Air I&O- Last 24 Hours up to 6 AM 09/17/21 06:00 Intake Total 1380 ml Balance 1380 ml EDENILSON HEARN MD Sep 17, 2021 10:11
[2021-09-17] MEDS ORDERED: PATIROMER SORBITEX CALCIUM 8.4 GM POWDER PACKET (VELTASSA) PO ONE (18:00)
--- NOTE | 2021-09-17 18:36 | IPN ---
NEPHROLOGY PROGRESS NOTE DATE: 09/17/2021 SUBJECTIVE: Miss Thomas is seen and examined this morning at the bedside. She reports no new complaints, except for ongoing leg edema. She is receiving IV Lasix today and echocardiogram is pending. Venous duplex of her legs was limited because of edema but did not show a DVT. She remains on room air.. OBJECTIVE: PHYSICAL EXAMINATION: VITAL SIGNS: Temperature 97.4, pulse 63, respiratory rate 18, blood pressure 133/51, saturating 99% on room air. Weight in the bed scale today is not recorded. GENERAL APPEARANCE: The patient seen awake, alert, oriented, sitting up in bed, elderly female. HEENT: The extraocular muscles are intact. Tongue is moist. NECK: Jugular veins are not elevated while she is sitting upright. HEART: Regular, S1, S2. LUNGS: Clear to auscultation. No crackles or rales. She is comfortable on room air. ABDOMEN: Soft, obese and nontender. EXTREMITIES: 2+ pitting edema of the bilateral lower extremities. NEUROLOGICAL: She is oriented x3, interactive and conversational. SKIN: Shows improvement in pallor and is otherwise warm and dry. LABORATORY STUDIES: Sodium 145, potassium 5.3, bicarbonate 25, BUN 58, creatinine 2.8, calcium 9.0, BNP 546, hemoglobin 8.8, platelet count 92. Albumin 2.9. Urinalysis was negative blood, negative protein. IMAGING: Venous duplex of the lower extremities done yesterday calf veins could not be visualized due to patient's edema, but there was no DVT seen in the femoropopliteal veins. INPATIENT MEDICATIONS: I held the Torsemide and I held the Spironolactone. The patient is ordered for three doses of IV Lasix 60 mg q. 8 hourly. She was also ordered for 25 grams of albumin. She got a dose of Aranesp yesterday and is also ordered for a dose of Veltassa. PROBLEMS: 1. Acute kidney injury superimposed on chronic kidney disease stage 3b in this patient with a solitary functioning kidney baseline creatinine is around 1.5. Acute kidney injury was in the setting of severe anemia and also new and worsening leg edema of uncertain etiology. She was transfused 2 units of packed red blood cells on this admission and her hemoglobin improved adequately. Ultrasound did not show any o obstruction of the solitary kidney. Venous duplex was limited because of calf edema but did not reveal a DVT in the femoropopliteal vein. I am going to get an echocardiogram even though her BNP is only modestly elevated. And we will do a trial of IV diuretic and see how the patient responds. I will use albumin support in view of her acute kidney injury and also mild to moderate low albumin. 2. Localized edema the patient has 2+ pitting edema in the legs which has been ongoing for the past several months and did not respond to increase in diuretics in the outpatient setting. Her BNP is only modestly elevated. I will get an echocardiogram. Her venous duplex was limited but did not show a DVT, as mentioned above. We will see how she does with a trial of IV diuretics. 3. Thrombocytopenia - platelet counts have been mildly downtrending over the past couple of months, but venous duplex did not show overt DVT. She follows up with hematology as an outpatient and has also had a bone marrow aspiration. 4. Anemia she follows up with hematology as an outpatient. She recently had IV iron. She has also had a bone marrow aspiration earlier this year. She was given a dose of Aranesp yesterday and she was also transfused 2 units packed red blood cells on this admission and hemoglobin did appropriately come up. 5. Hyperkalemia - potassium is 5.3. It is in the setting of acute kidney injury and solitary functioning kidney. Orders are written for IV Lasix along with Veltassa, and we will see how she does.
[2021-09-17] MEDS: LATANOPROST 0.005% OPHTH SOLN 2.5 ML OU SCH (21:00)
[2021-09-17] MEDS: PRAVASTATIN 20 MG TAB PO SCH (21:24)
[2021-09-17] MEDS: GABAPENTIN 300 MG CAP PO SCH (21:25)
[2021-09-18] VITALS (7 sets, daily range): BP systolic 100–143; BP diastolic 46–63
[2021-09-18] MEDS: FUROSEMIDE 100MG/10ML VIAL (J1940) IV SCH ×2 (06:21→14:18)
[2021-09-18] MEDS: ADVAIR HFA 230/21MCG INHALER INH SCH ×2 (07:43→21:08)
[2021-09-18 08:44] LABS: BASO % 0.5 % (0.0-1.0); EOS # 0.1 10^3/uL (0.0-0.5); EOS % 2.5 % (0.0-3.0); HEMATOCRIT 27.5 % (36.0-47.0); HEMOGLOBIN 8.4 g/dl (12.0-15.5); LYMPH # 0.9 10^3/uL (1.5-5.0); LYMPH % 15.4 % (24.0-44.0); MEAN CORPUSCULAR HEMOGLOBIN 29.8 pg (27.0-33.0); MEAN CORPUSCULAR HGB CONC 30.5 g/dl (32.0-36.5); MEAN CORPUSCULAR VOLUME 97.5 fl (80.0-96.0); MONO % 17.7 % (2.0-8.0); NEUTROPHILS # 3.6 10^3/uL (1.5-8.5); NEUTROPHILS % 63.4 % (36.0-66.0); RED BLOOD COUNT 2.82 10^6/uL (4.00-5.40); WHITE BLOOD COUNT 5.6 10^3/uL (4.0-10.0)
[2021-09-18 08:47] LABS: PLATELET COUNT, AUTOMATED 78 10^3/uL (150-450)
[2021-09-18 09:17] LABS: CALCIUM LEVEL 8.9 MG/DL (8.8-10.2); CREATININE FOR GFR 2.87 MG/DL (0.55-1.30); GLOMERULAR FILTRATION RATE 17.1 (>39); POTASSIUM SERUM 4.7 MEQ/L (3.5-5.1)
[2021-09-18] MEDS: BRIMONIDINE 0.15% OPHTH SOLN 5 ML OU SCH ×2 (09:28→20:47)
[2021-09-18] MEDS: TIMOLOL MALEATE 0.5% OPHTH SOLN 5 ML OU SCH ×2 (09:29→20:48)
[2021-09-18] MEDS: CINACALCET 30 MG TAB (SENSIPAR) PO SCH (09:29)
[2021-09-18] MEDS: GABAPENTIN 100 MG CAP PO SCH (09:29)
[2021-09-18] MEDS: OMEPRAZOLE 20 MG CAP PO SCH (09:30)
[2021-09-18] MEDS: FEBUXOSTAT 40 MG TABLET (ULORIC) PO SCH (09:30)
[2021-09-18] MEDS: MAGNESIUM OXIDE 400MG TAB (MAG-OX) PO SCH (09:30)
--- NOTE | 2021-09-18 09:49 | IPNPDOC ---
Text Note Date of Service The patient was seen on 09/18/21. NOTE Subjective: Patient seen and examined at bedside. No acute overnight events reported. Patient voices no new medical complaints this morning. Anxious to go home. Objective: Vital Signs: reviewed General: NAD, sitting comfortably in chair HEENT: NC/AT, EOMI Neck: supple, no masses Chest: lungs CTA B/L Heart: +S1S2, RRR, systolic murmur Abd: soft, NT, ND, +BS, obese Ext: peripheral edema Skin: no rashes MSK: full ROM at large joints Neuro: no gross focal deficits Psych: AAOx3 A/P: 76-year-old female with extensive medical history including chronic anemia presents for symptomatic acute on chronic anemia with acute kidney injury in the setting of chronic kidney disease. #acute/chronic anemia -Improved status post transfusion of PRBC, aranesp x 1 dose - ordered weekly - multifactorial - extensive workup with he cover inspector - Dr. Adrian, recently transfer of care to Dr. Vargas - she has had recent colonoscopy, recent iv iron infusion, and recent bone marrow biopsy - no acute pathology noted - heme c/s - as per chart review, last seen 08/17 by rea, with plans for Aranesp bi weekly, target Hg=10 #thrombocytopenia - no active bleeding - still trending down - continue to monitor - follows closely with rea as outpatient #ERWIN/CKD - s./p nephrectomy - nephrology c/s appreciated - receiving IV lasix #edema - LE dopplers negative for DVT - echo pending - CXR clear #CAD #COPD #Polymyalgia rheumatica - continue prednisone #Gout - uloric, prednisone #Hypertension #Dyslipidemia - pravachol #Glaucoma Dispo: pending improvement in renal function, echocardiogram VS,Fishbone, I+O VS, Fishbone, I+O Laboratory Tests 09/18/21 08:24 Vital Signs Date Time Temp Pulse Resp B/P (MAP) Pulse Ox O2 Delivery O2 Flow Rate FiO2 09/18/21 06:00 97.6 67 18 118/47 (70) 94 Room Air I&O- Last 24 Hours up to 6 AM 09/18/21 06:00 Intake Total 1534.0 ml Output Total 400 ml Balance 1134.0 ml EDENILSON HEARN MD Sep 18, 2021 09:49
--- NOTE | 2021-09-18 15:04 | IPN ---
PROGRESS NOTE DATE: 09/18/2021 SUBJECTIVE: Ms. Dasilva is seen and examined this morning at the bedside. She offers no complaints. No dyspnea. She reports increased urine output with IV Lasix. Her leg edema has appreciably improved. An echocardiogram is still pending. OBJECTIVE: VITAL SIGNS: Temperature is 97.6, pulse is 67, respiratory rate is 18, blood pressure is 118/47, saturating 94 to 96% on room air. INTAKE AND OUTPUT: Intake yesterday was 1.2 liters. There were seven voids recorded. Weight on the bed scale today is not recorded. GENERAL: Patient is seen awake, alert and oriented x3, comfortable in no distress. HEENT: The extraocular muscles are intact. Tongue is moist. NECK: Jugular veins are only mildly elevated. HEART: Regular, S1, S2. LUNGS: Clear to auscultation. No crackles or rales. She is comfortable on room air. ABDOMEN: Soft, obese and nontender. EXTREMITIES: Improved leg edema bilaterally, still 1 to 2+ and coming up to the mid grossman. NEUROLOGICAL: She is oriented x3, interactive and conversational. SKIN: There is some pallor but is otherwise warm and dry. LABORATORY DATA: White count is 5.6, hemoglobin is 8.4, platelets are 78,000. Sodium is 144, potassium is 4.7, BUN is 59, creatinine 2.8, GFR is 17. INPATIENT MEDICATIONS: She continues on Lasix 60 mg IV q. 8 hourly. There are no other medication changes as compared to yesterday. PROBLEMS: 1. Acute kidney injury superimposed on CKD Stage III in this patient with solitary functioning kidney and recent symptomatic anemia and worsening leg edema. Patient was diuresed yesterday with IV Lasix. She had improved urine output and her leg edema has clinically improved and her renal function has remained stable without any improvement, nor with any worsening. I will continue IV Lasix for one more day and the patient will probably be ready for discharge tomorrow, September 19. Ultrasound did not show any obstruction of the solitary kidney. Deep vein thrombosis was assessed for with Duplex scan and was limited due to calf edema but did not show any overt DVT. Albumin is ordered again for today. 2. Localized edema with modest elevation in BNP. Echocardiogram is pending. We will continue IV Lasix with albumin for today and I will plan to switch her to oral diuretics by tomorrow in anticipation of discharge. 3. Thrombocytopenia. Platelet counts have been down-trending. Venous Duplex was obtained to rule out DVT given her kidney injury and new edema. It was a limited scan because of edema but it did not show DVT. She follows up with hematology as an outpatient and has also had bone marrow aspiration. 4. Anemia. Patient recently had IV iron arranged by hematology as an outpatient. She got Aranesp while she was in the hospital along with 2 units of packed blood cells. 5. Hyperkalemia, it has improved with IV Lasix and Veltassa. 6. Hypertension, controlled with diuretic alone. 7. Hypomagnesemia. Continue magnesium supplementation. 8. Disposition: Patient can likely be ready for discharge tomorrow, September 19.
[2021-09-18] MEDS: GABAPENTIN 300 MG CAP PO SCH (20:47)
[2021-09-18] MEDS: PRAVASTATIN 20 MG TAB PO SCH (20:47)
[2021-09-18] MEDS: LATANOPROST 0.005% OPHTH SOLN 2.5 ML OU SCH (20:48)
[2021-09-19 06:00] VITALS: BP 129/61
[2021-09-19 07:30] VITALS: BP 122/82
[2021-09-19] MEDS: ADVAIR HFA 230/21MCG INHALER INH SCH (07:37)
[2021-09-19 08:35] LABS: HEMATOCRIT 27.8 % (36.0-47.0); HEMOGLOBIN 8.4 g/dl (12.0-15.5); MEAN CORPUSCULAR HEMOGLOBIN 29.8 pg (27.0-33.0); MEAN CORPUSCULAR HGB CONC 30.2 g/dl (32.0-36.5); MEAN CORPUSCULAR VOLUME 98.6 fl (80.0-96.0); RED BLOOD COUNT 2.82 10^6/uL (4.00-5.40); WHITE BLOOD COUNT 5.2 10^3/uL (4.0-10.0)
[2021-09-19 08:39] LABS: PLATELET COUNT, AUTOMATED 79 10^3/uL (150-450)
[2021-09-19 08:51] LABS: CALCIUM LEVEL 8.9 MG/DL (8.8-10.2); CREATININE FOR GFR 2.73 MG/DL (0.55-1.30); GLOMERULAR FILTRATION RATE 18.1 (>39); POTASSIUM SERUM 4.6 MEQ/L (3.5-5.1)
--- NOTE | 2021-09-19 09:18 | ECHO ---
ECHOCARDIOGRAM DATE OF PROCEDURE: 09/18/2021 Age: 76 Gender: Female Height: 67 inches Weight: 257 pounds Body Surface Area: 2.25 m2 PATIENT LOCATION: Inpatient, [address] [place] [address], Room 4222. REFERRING PHYSICIAN: JESSICA DEGROOT DO INDICATION: Edema. MEASUREMENTS: 2D Measurements: RV 4.4 cm LV 5.2 cm Septum 1.3 cm Posterior wall 1.3 cm Aortic root 3.4 cm LA 4.0 cm LVEF 75%. Doppler Measurements: AV 1.95 m/sec LVOT 1.04 m/sec LVOT diameter 2.0 cm MV-E 132, A 106, EA ratio 1.2 Early mitral deceleration time 264 msec E prime medial 5.3, A prime medial 6.7, E prime lateral 7.4 Average E/E prime ratio 20.8/PCWP 27.7 mmHg PV 0.8 m/sec Pulmonary artery acceleration time 100 msec RVSP 59 mmHg IVC 2.2 cm COMMENTS: Sinus bradycardia with first degree AV block and right bundle branch block. Technically challenging study in light of the patient's body habitus but diagnostically useful information was still obtained. M-mode and 2-dimensional echocardiography was performed with pulse, continuous wave, color flow and tissue Doppler study. Mild symmetrical left ventricular hypertrophy with hyperkinetic wall motion. Mildly dilated left atrium with Grade 2 LV diastolic dysfunction and significantly elevated mean left atrial pressure. Mildly dilated right heart chambers with normal wall motion and moderately severe pulmonary hypertension. IVC size upper limits of normal with reduced respiratory collapsing in keeping with elevated central venous pressure/right heart failure. Normal aortic dimensions. Mild aortic valvular sclerosis without stenosis but no insufficiency. Mild degenerative changes of the mitral valvular apparatus without in-flow tract obstruction but mild insufficiency. Normal appearing tricuspid valve with mild insufficiency. Normal apparent intracardiac mass or pericardial effusion.
[2021-09-19] MEDS: CINACALCET 30 MG TAB (SENSIPAR) PO SCH (09:59)
[2021-09-19] MEDS: OMEPRAZOLE 20 MG CAP PO SCH (09:59)
[2021-09-19] MEDS: FEBUXOSTAT 40 MG TABLET (ULORIC) PO SCH (09:59)
[2021-09-19] MEDS: GABAPENTIN 100 MG CAP PO SCH (09:59)
[2021-09-19] MEDS: MAGNESIUM OXIDE 400MG TAB (MAG-OX) PO SCH (10:00)
[2021-09-19] MEDS: BRIMONIDINE 0.15% OPHTH SOLN 5 ML OU SCH (10:01)
[2021-09-19] MEDS: TIMOLOL MALEATE 0.5% OPHTH SOLN 5 ML OU SCH (10:08)
[2021-09-19 11:22] LABS: INR 1.19; PROTHROMBIN TIME 15.5 SECONDS (12.7-14.5)
[2021-09-19 11:23] LABS: PARTIAL THROMBOPLASTIN TIME 38.3 SECONDS (25.9-37.0)
--- NOTE | 2021-09-19 12:48 | IPN ---
PROGRESS NOTE DATE: 09/19/2021 SUBJECTIVE: Ms. Dasilva is seen and examined this morning at the bedside. Her echocardiogram was completed, report is pending. She is eager to return home. She offers no complaints. No shortness of breath. Her renal function did not improve but she did tolerate IV Lasix the past couple of days. Hemoglobin remains stable. OBJECTIVE: VITAL SIGNS: Temperature 97.9, pulse is 68, respiratory rate is 16, blood pressure is 122/82, saturating 94% on room air. INTAKE AND OUTPUT: Intake yesterday was 1.3 liters. There were seven voids yesterday. Weight on the bed scale today is not recorded. GENERAL: Patient is seen awake, alert and oriented and oriented sitting in the chair in no distress. HEENT: Extraocular muscles are intact. Tongue is moist. NECK: Jugular veins are not elevated. HEART: Heart sounds are regular. S1 and S2. No murmur. LUNGS: Clear to auscultation. No crackle or rale. She is comfortable on room air. ABDOMEN: Soft, obese and nontender. EXTREMITIES: There is still 1 to 2+ pitting edema in the lower extremities. She is wearing compression stockings. NEUROLOGIC: She is oriented x3, interactive and conversational. SKIN: Skin shows some pallor but is otherwise warm and dry. LABORATORY DATA: Hemoglobin is 8.4, platelets are 79, sodium is 143, potassium is 4.6, bicarbonate is 26, BUN is 60, creatinine is 2.7. INPATIENT MEDICATIONS: Reviewed by myself and no changes noted over the past 24 hours. She is off of IV Lasix and is going to resume her home diuretic regimen upon discharge. PROBLEMS: 1. Acute kidney injury superimposed on CKD Stage IIIB in this patient with solitary functioning kidney. Baseline creatinine is around 1.5. Patient remains in acute kidney injury but she did tolerate IV Lasix the past couple of days without any further worsening of renal function. Her renal imaging was negative for obstruction. She may develop dialysis needs in the near future but there are no current needs and she is acceptable for discharge from my point of view to continue with her chronic home diuretic regimen with outpatient follow-up. 2. Localized edema with modest elevation in BNP. Venous Duplex was negative for overt DVT (but was limited due to calf edema). She was diuresed with IV Lasix with albumin. She had no further worsening of her renal function. She can be discharged home on her chronic home diuretic regimen and we will follow up the echocardiogram report in the outpatient setting. She is likely to have some degree of congestive heart failure. 3. Thrombocytopenia. Has been downtrending over the past few months. She follows up with Hematology as an outpatient. Venous Duplex is obtained to rule out DVT given her kidney injury, calf edema and downtrending platelets. It was limited because of edema but did not show DVT in the femoral or popliteal veins. 4. Anemia. She had IV iron recently as an outpatient. She got Aranesp in the hospital along with two units of packed red blood cells. Hemoglobin came up appropriately to 8.4. 5. Hypertension, controlled with diuretic alone. 6. Patient is stable for discharge from a nephrology point of view with outpatient follow-up.
--- NOTE | 2021-09-19 19:11 | DS.PDOC ---
Discharge Summary General Date of Admission Sep 14, 2021 at 13:38 Date of Discharge 09/19/21 Attending Physician: Pushpa Hanna MD Discharge Summary PROCEDURES PERFORMED DURING STAY: None ADMITTING DIAGNOSES: Acute on chronic anemia ERWIN on CKD Stage III B CAD COPD Polymyalgia rheumatica Gout Hypertension Glaucoma DISCHARGE DIAGNOSES: Acute on chronic anemia, multifactorial Thrombocytopenia, chronic ERWIN on CKD stage IIIB Localized edema r/o CHF CAD COPD Polymyalgia rheumatica Gout Hypertension Dyslipidemia Glaucoma COMPLICATIONS/CHIEF COMPLAINT: Erwin, Symptomatic Anemia HISTORY OF PRESENT ILLNESS: 76-year-old female presents with several day history of worsening shortness of breath dizziness and weakness. She was seen today and by her electrical prospecting observer with recommendations to present to the emergency room. In the ER she is found to be anemic. She has a longstanding history of chronic anemia with an extensive work- up including recent bone marrow biopsy. HOSPITAL COURSE: Patient was admitted and treated for the following issues while here: Acute kidney injury superimposed on CKD Stage IIIB in this patient s/p nephrectomy and solitary functioning kidney -Cr 2.73, basseline creatinine 1.5. -Per nephrology did not tolerate IV lasix without worsening of Cr -Renal US neg -Per nephrology, may develop dialysis needs in the near future but there are no current needs and she is acceptable for discharge -Was recommended for her to continue diuretics from home -F/u with nephrology made prior to discharge -Discussed case with Dr. Joy Kessler Localized edema with modest elevation in BNP, r/o CHF -Doppler neg for DVT -BNP 500's, no incr in SOB -Echocardiogram ordered and done, will need f/u as o/p for official reading -Again on diuretics above -If echo warrants, may need cardiology consult. Chronic thrombocytopenia -Downtrending for some time, follows as o/p with hematology -No s/s of bleeding -F/u with heme/onc as o/p Chronic anemia multifactorial 2/2 to chronic disease, FELIPE -S/p recent IV iron as o/p, Aranesp in the hospital along with two units of packed red blood cells. -Hgb came up appropriately -She has has had recent colonoscopy, and recent bone marrow biopsy - no acute pathology noted -F/u with heme/onc as o/p, nephrology Hypertension -Controlled -C/w home med Other chronic issues mentioned above were stable. DISCHARGE MEDICATIONS: Please see below. ALLERGIES: Please see below. PHYSICAL EXAMINATION ON DISCHARGE: VITAL SIGNS: Please see below. CONSTITUTIONAL: No acute distress, resting comfortably, AAO x 3 EYES: PERRLA, EOM intact HENT, MOUTH: Normocephalic, atraumatic, moist mucous membranes NECK: SUPPLE, no JVD, no lymphadenopathy, no carotid bruit CV: Regular rate and rhythm, S1S2 normal, no murmurs/rubs/gallops RESPIRATORY: Clear to auscultation bilaterally, no rales/rhonchi/wheezes GI: obese abd, BS positive in 4 quadrants, soft, nontender, nondistended, no rebound or guarding, no organomegaly : Deferred MUSCULOSKELETAL: Normal ROM. No cyanosis, clubbing, swelling, joint deformity, +1-2 extremity edema INTEGUMENTARY: Intact, no rashes, no lesions, no erythema NEUROLOGIC: Cranial Nerves II-XII are intact, no focal deficits PSYCHIATRIC: Mood and affect are normal LABORATORY DATA: Please see below. IMAGING: See chart PROGNOSIS: Good ACTIVITY: As tolerated DIET: renal diet DISPOSITION: 01 Home, Self-Care. DISCHARGE INSTRUCTIONS/ ITEMS TO FOLLOWUP ON ON OUTPATIENT: 1.To follow up with nephrology as already scheduled at discharge. 2. To follow up with your hematology provider and update them on your most recent hospital admission. 3. Echocardiogram was done this admission to help r/o congestive heart failure as cause of lower ext edema. The official report is pending and would appreciate nephrology and PCP to follow up if possible DISCHARGE CONDITION: Stable TIME SPENT ON DISCHARGE: 35 minutes. Vital Signs/I&Os Vital Signs Date Time Temp Pulse Resp B/P (MAP) Pulse Ox O2 Delivery O2 Flow Rate FiO2 09/19/21 07:30 97.9 68 16 122/82 (95) 94 Room Air I&O- Last 24 Hours up to 6 AM 09/19/21 06:00 Intake Total 1055.0 ml Output Total 1050 ml Balance 5.0 ml Laboratory Data Labs 24H Laboratory Tests 2 09/19/21 08:04: Nucleated Red Blood Cells % (auto) 0.0, Anion Gap 7L, Glomerular Filtration Rate 18.1L, Calcium Level 8.9 09/19/21 10:44: Prothrombin Time 15.5H, Prothromb Time International Ratio 1.19, Activated Partial Thromboplast Time 38.3 CBC/BMP Laboratory Tests 09/19/21 08:04 Discharge Medications Scheduled Brimonidine Tartrate/Timolol (Combigan 0.2%-0.5% Eye Drops) 5 Ml Drops, 1 DROP OU BID, (Reported) Cinacalcet HCl (Cinacalcet HCl) 30 Mg Tablet, 30 MG PO 2XW, (Reported) MON, Febuxostat (Febuxostat) 40 Mg Tablet, 40 MG PO DAILY, (Reported) Fluticasone Propion/Salmeterol (Advair Hfa 230-21 Mcg Inhaler) 12 Gm Hfa.aer.ad, 2 PUFF INH BID, (Reported) Gabapentin (Gabapentin) 100 Mg Capsule, 300 MG PO QHS, (Reported) Gabapentin (Gabapentin) 100 Mg Capsule, 100 MG PO DAILY, (Reported) Magnesium Oxide (Magnesium Oxide) 400 Mg Tablet, 400 MG PO DAILY, (Reported) Omeprazole (Omeprazole) 40 Mg Capsule.dr, 40 MG PO DAILY, (Reported) Pravastatin Sodium (Pravastatin Sodium) 40 Mg Tablet, 40 MG PO QHS, (Reported) Spironolactone (Spironolactone) 25 Mg Tablet, 25 MG PO QHS, (Reported) Torsemide (Torsemide) 20 Mg Tablet, 40 MG PO BID, (Reported) Travoprost (Travatan Z) 0.004% 2.5ML Drops, 1 DROP OU QHS, (Reported) Scheduled PRN Albuterol Sulfate (Ventolin Hfa) 18 Gm Hfa.aer.ad, 2 PUFF INH Q6H PRN for SHORTNESS OF BREATH, (Reported) Diclofenac Sodium (Diclofenac Sodium) 1% 100GM Gel..gram., 4 GM TOP QID PRN for P, (Reported) APPLY TO RIGHT SHOULDER Allergies Coded Allergies: levofloxacin (Verified Allergy, Severe, Throat swelling, 04/24/19) Penicillins (Verified Allergy, Intermediate, rash, 04/24/19) allopurinol (Verified Allergy, Intermediate, rash, 10/07/20) cephalexin (Verified Allergy, Intermediate, hives, 04/24/19) sulfamethoxazole (Verified Allergy, Intermediate, rash, 04/24/19) trimethoprim (Verified Allergy, Intermediate, rash, 04/24/19) TAPE (Verified Allergy, Mild, skin tears and bruising, 10/07/20) Pushpa Hanna MD Sep 19, 2021 19:11
== END 2021-09-19 14:15 | disposition home or self-care (01) | DRG 812 ==
LOC: M ED 11:31 → M ED INP 13:38 → M MSPAV 18:48
PROVIDERS: ADMIT Internal Medicine; ATTEND Internal Medicine
PROC: 30233N1 Transfusion of Nonautologous Red Blood Cells into Peripheral Vein, Percutaneous Approach (ICD-10-PCS; principal; 2021-09-14)
DX: D62 Acute posthemorrhagic anemia (principal); N17.9 Acute kidney failure, unspecified; E87.0 Hyperosmolality and hypernatremia; I25.10 Atherosclerotic heart disease of native coronary artery without angina pectoris; J44.9 Chronic obstructive pulmonary disease, unspecified; N18.32 Chronic kidney disease, stage 3b; M35.3 Polymyalgia rheumatica; M10.9 Gout, unspecified; I12.9 Hypertensive chronic kidney disease with stage 1 through stage 4 chronic kidney disease, or unspecified chronic kidney disease; E78.5 Hyperlipidemia, unspecified; H40.9 Unspecified glaucoma; Z98.41 Cataract extraction status, right eye; Z98.42 Cataract extraction status, left eye; Z96.641 Presence of right artificial hip joint; Z90.5 Acquired absence of kidney; Z90.49 Acquired absence of other specified parts of digestive tract; Z20.822 Contact with and (suspected) exposure to COVID-19; Z79.899 Other long term (current) drug therapy; Z88.0 Allergy status to penicillin; Z88.1 Allergy status to other antibiotic agents; Z88.2 Allergy status to sulfonamides; Z88.8 Allergy status to other drugs, medicaments and biological substances; Z91.040 Latex allergy status; D63.1 Anemia in chronic kidney disease; D69.6 Thrombocytopenia, unspecified; E87.5 Hyperkalemia; E83.42 Hypomagnesemia

== ENCOUNTER → 2021-09-14 | Outpatient (REF) | payer MEDICARE, BC ==
[~2021-09-14] MED LIST changes: +COMB0.2S OU; +DICL1GEL3 TOP; +MAGN1TAB26 PO; +SPIR-10 PO; -TRAV04OPD OP; +TRAV04OPD OU
== END ==
LOC: M LAB REF 13:21
PROVIDERS: ATTEND Internal Medicine Nephrology
DX: E83.42 Hypomagnesemia (principal)

== ENCOUNTER → 2021-10-09 | Outpatient (REF) | payer MEDICARE, BC ==
[~2021-10-09] MED LIST changes: +COMB0.2S OU; +DICL1GEL3 TOP; +MAGN1TAB26 PO; +SPIR-10 PO
== END ==
LOC: M LAB REF 17:32
PROVIDERS: ATTEND Internal Medicine Nephrology
DX: E83.42 Hypomagnesemia (principal)

== ENCOUNTER → 2021-10-20 | Outpatient (CLI) | payer MEDICARE, BC ==
[~2021-10-20] MED LIST changes: +BUME2TAB3 PO; +CALC1CAP31 PO; +FERR325T3 PO; +HYDR-4467 PO; +LOSA25TA13 PO; -LOSA25TA14 PO; -OMEP-221 PO; +OMEP40CA5 PO
== END ==
LOC: M RAD 10:34
PROVIDERS: ATTEND Internal Medicine Nephrology
DX: Z01.818 Encounter for other preprocedural examination (principal); N18.4 Chronic kidney disease, stage 4 (severe)

== ENCOUNTER → 2022-07-05 | Outpatient (REF) | payer MEDICARE, BC ==
[~2022-07-05] MED LIST changes: +DOXY100T PO; +LEVO25TA34 PO; +NEPH1TAB PO
[2022-07-05 19:36] LABS: HEPATITIS B CORE ANTIBODY IGM NEGATIVE (NEGATIVE); HEPATITIS B SURFACE ANTIBODY NEGATIVE (POSITIVE); HEPATITIS B SURFACE ANTIGEN NEGATIVE (NEGATIVE)
== END ==
LOC: M LAB REF 17:00
PROVIDERS: ATTEND Internal Medicine Nephrology
DX: N18.6 End stage renal disease (principal)

== ENCOUNTER → 2022-07-19 | Outpatient (CLI) | payer MEDICARE, BC ==
[~2022-07-19] MED LIST changes: +LIDOCAINE 1% MDV 20ML VIAL As Ordered ONE; +MIDAZOLAM INJ 2MG/2ML VIAL (J2250 PER 1MG) As Ordered ONE; +VANCOMYCIN 1000MG/20ML VIAL As Ordered ONE; +VANCOMYCIN HCL 1,000 MG, VIAL MATE ADAPTER 1 EACH in D5W 250 ML IV ONE; +fentaNYL 100 MCG/2 ML INJECTION As Ordered ONE
[2022-07-19 15:18] LABS: HEMATOCRIT 28.2 % (36.0-47.0); HEMOGLOBIN 8.4 g/dl (12.0-15.5); MEAN CORPUSCULAR HEMOGLOBIN 29.7 pg (27.0-33.0); MEAN CORPUSCULAR HGB CONC 29.8 g/dl (32.0-36.5); MEAN CORPUSCULAR VOLUME 99.6 fl (80.0-96.0); PLATELET COUNT, AUTOMATED 141 10^3/uL (150-450); RED BLOOD COUNT 2.83 10^6/uL (4.00-5.40); WHITE BLOOD COUNT 12.1 10^3/uL (4.0-10.0)
[2022-07-19 15:57] LABS: CALCIUM LEVEL 9.3 MG/DL (8.8-10.2); CREATININE FOR GFR 4.81 MG/DL (0.55-1.30); GLOMERULAR FILTRATION RATE 9.4 (>39); POTASSIUM SERUM 4.4 MEQ/L (3.5-5.1)
[2022-07-19 18:26] VITALS: BP 156/65
== END ==
LOC: M IRPRO 14:18
PROVIDERS: ATTEND Surgery Vascular Surgery
DX: N18.6 End stage renal disease (principal); Z90.5 Acquired absence of kidney; Z99.2 Dependence on renal dialysis; Z88.0 Allergy status to penicillin; Z88.1 Allergy status to other antibiotic agents; Z88.2 Allergy status to sulfonamides; Z88.8 Allergy status to other drugs, medicaments and biological substances; Z91.048 Other nonmedicinal substance allergy status
CPT/HCPCS: 36558; 80048; 85027; 99152; 99153; C1750; C1769; C1894; J1644; J2250; J3010; J3370